=== PATIENT | female | born 1995 | race Caucasian/White ===

== ENCOUNTER → 2018-03-10 | Outpatient (CLI) | payer OTHER ==
--- NOTE | 2018-03-10 08:44 | US ---
EXAMINATION TYPE: Transabdominal DATE OF EXAM: 05/10/17 COMPARISON: NONE CLINICAL HISTORY: [id number] Confirm Dates viability. EXAM PERFORMED: Transvaginal (TV) and Transabdominal (TA) EXAM MEASUREMENTS: GESTATIONAL AGE / DATING Physician Established: Not yet established Dates by LMP: (10 weeks/5 days) EDC: 10/01/18 Dates by First Scan: No previous this is first scan Dates by Current Scan for: (9 weeks/1 days) EDC: 10/12/18 MATERNAL ANATOMY Uterus: 10.9 x 5.9 x 6.6cm Right Ovary: 2.9 x 2.4 x 2.5 Left Ovary: 2.4 x 1.5 x 1.7cm Post CDS / Adnexa: wnl Presence of free fluid: no GESTATION / SURVEY CRL: 2.5 cm (9 weeks/2 days) Heart Rate: NO HEART TONES by color and power doppler, no m mode detected IUP: Demise Date of LMP: 12/25/18 Beta HcG (if available): Not available at this time Heterogeneous anteverted uterus is seen. There is gestational sac and pole identified. Yolk sac is not clearly seen. Despite multiple attempts heart tones cannot be detected. No free fluid i s seen in pelvic cul-de-sac. Both ovaries are seen. No suspicious extraovarian adnexal masses are noted. IMPRESSION: Ultrasound findings consistent with intrauterine demise as heart tones cannot be detected .
== END | disposition home or self-care (01) ==
LOC: RADUSWWP 07:34
PROVIDERS: ATTEND Obstetrics & Gynecology
DX: Z36.9 Encounter for antenatal screening, unspecified (principal)
CPT/HCPCS: 76801; 76817

== ENCOUNTER → 2018-03-30 | Outpatient (CLI) | payer OTHER ==
--- NOTE | 2018-03-30 11:38 | US ---
EXAMINATION TYPE: Ultrasound OB <= 14 week fetus DATE OF EXAM: 03/30/2018 11:18 AM COMPARISON: 03/10/2018 CLINICAL HISTORY: 22-year-old female O02.1 Missed . EXAM PERFORMED: Transabdominal (TA) FINDINGS: EXAM MEASUREMENTS: GESTATIONAL AGE / DATING Physician Established: Not yet established Dates by LMP: (13 weeks/4 days) EDC: 10/01/2018 Dates by First Scan: non viable IUP on prior Dates by Current Scan for: No pole identified. MATERNAL ANATOMY Uterus: 12.2 x 5.8 x 6.5 cm The fundal endometrial stripe measures 8.4 mm. Right Ovary: 3.2 x 2.2x 1.9 cm Left Ovary: 2.1 x 2.1 x 1.9 cm Post CDS / Adnexa: wnl Presence of free fluid: none GESTATION / SURVEY Date of LMP: 12/25/2017 [employer] notes: No pole seen on today's exam. There is a hypoechoic area JANNETTE that measures 1 .1 x 1.7 cm and could represent remnants of gestational sac or hemorrhagic debris. The patient is ble eding heavily and did not really want a transvaginal exam. IMPRESSION: 1.7 x 1.1 cm heterogeneous material within the uterine cavity of the lower uterine segment. Findings suggest remnants of the failed or hemorrhagic debris. No viable intrauterine .
== END ==
LOC: RADUSWWP 10:58
PROVIDERS: ATTEND Obstetrics & Gynecology
DX: O02.1 Missed abortion (principal); O46.91 Antepartum hemorrhage, unspecified, first trimester
CPT/HCPCS: 76801